=== PATIENT | female | born 1940 | race Caucasian/White ===

== ENCOUNTER 2019-09-03 05:24 | Inpatient (IN) | payer MEDICARE ==
[2019-08-26 13:08] LABS: BASOPHILS # (AUTO) 0.1 X10'3 (0-0.2); BASOPHILS % (AUTO) 0.8 % (0-1); EOSINOPHILS # (AUTO) 0.1 X10'3 (0-0.9); EOSINOPHILS % (AUTO) 1.1 % (0-6); LYMPHOCYTES # (AUTO) 2.3 X10'3 (1.1-4.8); LYMPHOCYTES % (AUTO) 27.1 % (21-51); MEAN CORPUSCULAR HEMOGLOBIN 29.7 PG (27.0-31.0); MEAN CORPUSCULAR HGB CONC 32.9 g/dL (33.0-36.5); MEAN CORPUSCULAR VOLUME 90.3 FL (78-98); MEAN PLATELET VOLUME 7.6 FL (7.4-10.4); MONOCYTES # (AUTO) 0.6 X10'3 (0-0.9); MONOCYTES % (AUTO) 7.4 % (2-12); NEUTROPHILS # (AUTO) 5.5 X10'3 (1.8-7.7); NEUTROPHILS % (AUTO) 63.6 % (42-75); PRE OP HEMATOCRIT 41.3 % (35.0-45.0); PRE OP HEMOGLOBIN 13.6 g/dL (12.0-16.0); PRE OP PLATELET COUNT 269 X10'3 (140-440); RED BLOOD COUNT 4.58 X10'6 (4.20-5.60); RED CELL DISTRIBUTION WIDTH 13.7 % (11.5-14.5)
[2019-08-26 13:18] LABS: PRE OP INR 0.9 INR; PRE OP PROTIME 9.8 SECONDS (9.0-12.0)
[2019-08-26 13:30] LABS: ALBUMIN 3.8 G/DL (3.4-5.0); ALKALINE PHOSPHATASE 57 IU/L (46-116); BLOOD UREA NITROGEN 12 MG/DL (7-18); BUN/CREATININE RATIO 13.8 (6.6-38.0); CALCIUM 9.9 MG/DL (8.5-10.1); CHLORIDE 101 MMOL/L (99-107); CREATININE 0.87 MG/DL (0.40-0.90); PRE OP ALT 13 U/L (30-65); PRE OP ANION GAP 10 (8-16); PRE OP AST 13 U/L (10-37); PRE OP BILIRUB, TOTAL 0.3 MG/DL (0.0-1.0); PRE OP GLUCOSE 95 MG/DL (70-104); PRE OP SODIUM 137 MMOL/L (135-145); TOTAL CARBON DIOXIDE 26.1 MMOL/L (24-32); TOTAL PROTEIN 7.5 G/DL (6.4-8.2); eGFR 62 ML/MIN
[~2019-09-03] VITALS: Ht 152.4 cm; Wt 78.0 kg
[2019-09-03] VITALS (18 sets, daily range): BP systolic 88–139; BP diastolic 42–87
[~2019-09-03 05:24] MED LIST: ATEN100T PO; ENAL20TA PO; EST1T PO; MAGN400C PO; METH500T4 PO
[2019-09-03] MEDS ORDERED: tranexamic acid 1gm/0.7% sal. 100 ML IV ONE (05:30)
[2019-09-03] MEDS ORDERED: vancomycin 1,500 MG in NS 500ml IV soln IV ONE (05:30)
[2019-09-03] MEDS ORDERED: famotidine 20mg tablet PO ONE (05:30)
[2019-09-03] MEDS ORDERED: cefazolin/dext.iso 2gm/50ml 50 ML IV ONE (05:30)
[2019-09-03] MEDS ORDERED: DOCUMENT DATE & TIME OF BETA-BLOCKER PO ONE (05:30)
[2019-09-03] MEDS: ringers solution, lacted 1,000 ML IV SCH ×2 (06:24→11:52)
[2019-09-03] MEDS ORDERED: ceFAZolin 1000mg inj ONE (06:48)
[2019-09-03] MEDS ORDERED: tetracaine 1% (10mg/ml) pres. free inj. ONE (07:12)
[2019-09-03] MEDS ORDERED: fentaNYL/PF 50MCG/1 ML 2ML syringe ONE (07:13)
[2019-09-03] MEDS ORDERED: MIDAZolam 5mg/5ml vial ONE (07:14)
[2019-09-03] MEDS ORDERED: ePHEDrine 50MG/ML INJ. ONE (07:35)
[2019-09-03] MEDS ORDERED: ringers solution, lacted 1,000 ML IV SCH (08:26)
[2019-09-03] MEDS ORDERED: meperidine/PF 25mg/ml syringe IV PRN ×3 (08:30)
[2019-09-03] MEDS ORDERED: morphine 2 MG/ML inj. syringe IV PRN (08:30)
[2019-09-03] MEDS ORDERED: morphine 4 MG/ML inj SYRINge IV PRN (08:30)
[2019-09-03] MEDS ORDERED: ondansetron/PF 4mg/2ml inj IV PRN ×2 (08:30→09:50)
[2019-09-03] MEDS ORDERED: proCHLORperazine 10 MG/2 ml inj IV PRN (08:30)
[2019-09-03] MEDS ORDERED: propofol inj 20 ML IV ONE (09:35)
--- NOTE | 2019-09-03 09:40 | NUR ---
Received from OR via ORTHO BED WITH [facility], accompanied by Anesthesiologist BONITA and report given by Anesthesiolgist. PATIENT WITH 18G PIV IN LEFT AC RUNNING LR AT 100. VSS. RIGHT HIP WRAP PRESENT AND IS CDI. + DP TO RIGHT FOOT. SENSATION LEVEL AT T8 AT THIS TIME FROM SPINAL ANESTHESIA. SCDS DONNED. VSS. DENIES PAIN. Addendum: 09/03/19 at 0953 by Sarthak Renteria RN, RN Amended: Links added.
[2019-09-03] MEDS ORDERED: magnesium hydroxide 30ml (MOM) UD suspension PO PRN (09:50)
[2019-09-03] MEDS ORDERED: acetaminophen 325mg tablet PO PRN (09:50)
[2019-09-03] MEDS ORDERED: bisacodyl 10mg suppository rectal RC PRN (09:50)
[2019-09-03] MEDS ORDERED: diphenhydrAMINE 25mg capsule PO PRN ×2 (09:50)
--- NOTE | 2019-09-03 10:40 | NUR ---
Patient has met criteria for transfer to floor. Patient vss. Pain at a tolerable level. Transferred via bed to room where they were hooked to vitals and RN notified patient has arrived. Bed low, call light within reach, 2-3 rails up, vss, belongings placed in room. Care turned over to RN. GISELLE OSMAN PRESENT TO ASSIST IN SETTING UP PATIENT VS. PATIENT DENIES PAIN, ONE BAG OF BELONGINGS PLAC ED AT BEDSIDE OF 4020B. CARE TURNED OVER. Addendum: 09/03/19 at 1101 by Sarthak Renteria RN, RN Amended: Links added.
[2019-09-03] MEDS: HYDROcodone/acetaminophen 10/325mg tab PO PRN ×3 (13:04→23:45)
[2019-09-03] MEDS: HYDROmorphone inj. 0.5 MG/0.5 ML DISP.SYRIN IV PRN ×2 (15:08→20:55)
[2019-09-03] MEDS: potassium Cl 20mEq in NS 1,000 ML IV SCH ×2 (15:41→23:08)
[2019-09-03] MEDS: ceFAZolin 1GM/D5W- ADD-VANTAGE 50 ML IV SCH ×2 (15:42→23:45)
[2019-09-03] MEDS: aspirin 81mg tab.chew PO SCH (17:07)
[2019-09-03] MEDS ORDERED: aspirin 325mg tablet PO SCH (17:30)
--- NOTE | 2019-09-03 18:27 | NUR ---
Problems reprioritized. Patient report given, questions answered & plan of care reviewed with Thais DESAI.
--- NOTE | 2019-09-03 18:32 | NUR ---
Patient in room ORTHO 4020. I have received report from Sonali DESAI and had the opportunity to ask questions and assume patient care.
[2019-09-03] MEDS ORDERED: vancomycin/NS 1 GM ADD-VANTAGE 250 ML IV SCH (20:00)
[2019-09-03] MEDS: atenolol 50mg tablet PO SCH (21:00)
[2019-09-03] MEDS: simethicone 80mg chew tab PO SCH (21:00)
[2019-09-03] MEDS: lisinopril 20mg tablet PO SCH (21:00)
[2019-09-03] MEDS: psyllium seed 3.4 gm packet PO SCH (21:01)
[2019-09-03] MEDS: sennosides 8.6mg tablet PO SCH (21:01)
[2019-09-03] MEDS: estradiol 1mg tablet PO SCH (21:27)
--- NOTE | 2019-09-03 23:56 | NUR ---
Per report from day shift patient was seen by pgysical therapy but no documentation found. Patient states she stood with PT today post op day zero. Will pass on to physical therapy Addendum: 09/03/19 at 3918 by Thais Damon RN seen by physical therapy.
[2019-09-04] VITALS (7 sets, daily range): BP systolic 106–137; BP diastolic 40–66
[2019-09-04] MEDS: HYDROcodone/acetaminophen 10/325mg tab PO PRN ×3 (05:01→19:24)
[2019-09-04] MEDS: potassium Cl 20mEq in NS 1,000 ML IV SCH ×2 (05:02→18:00)
--- NOTE | 2019-09-04 06:28 | NUR ---
Problems reprioritized. Patient report given, questions answered & plan of care reviewed with Sonali DESAI.
[2019-09-04 06:51] LABS: BASOPHILS % (AUTO) 0.4 % (0-1); EOSINOPHILS % (AUTO) 0.4 % (0-6); HEMOGLOBIN 10.1 g/dl (12.0-16.0); LYMPHOCYTES # (AUTO) 1.7 X10'3 (1.1-4.8); LYMPHOCYTES % (AUTO) 20.7 % (21-51); MEAN CORPUSCULAR HEMOGLOBIN 30.5 PG (27.0-31.0); MEAN CORPUSCULAR HGB CONC 33.6 g/dL (33.0-36.5); MEAN CORPUSCULAR VOLUME 90.7 FL (78-98); MEAN PLATELET VOLUME 7.5 FL (7.4-10.4); MONOCYTES # (AUTO) 0.8 X10'3 (0-0.9); MONOCYTES % (AUTO) 9.6 % (2-12); NEUTROPHILS # (AUTO) 5.8 X10'3 (1.8-7.7); NEUTROPHILS % (AUTO) 68.9 % (42-75); PLATELET COUNT 185 X10'3 (140-440); RED BLOOD COUNT 3.31 X10'6 (4.20-5.60); RED CELL DISTRIBUTION WIDTH 13.7 % (11.5-14.5); WHITE BLOOD COUNT 8.4 X10'3 (4.5-11.0)
[2019-09-04] MEDS: aspirin 81mg tab.chew PO SCH ×2 (07:21→17:59)
[2019-09-04] MEDS: simethicone 80mg chew tab PO SCH ×3 (07:22→18:48)
[2019-09-04 07:27] LABS: ANION GAP 8 (8-16); CHLORIDE 103 MMOL/L (99-107); POTASSIUM 4.1 MMOL/L (3.5-5.1); SODIUM 135 MMOL/L (135-145); TOTAL CARBON DIOXIDE 23.6 MMOL/L (24-32)
--- NOTE | 2019-09-04 09:16 | NUR ---
Problems reprioritized. Patient report given, questions answered & plan of care reviewed with Alice DESAI.
--- NOTE | 2019-09-04 09:30 | NUR ---
Patient in room ORTHO 4020. I have received report from Sonali DESAI and had the opportunity to ask questions and assume patient care.
--- NOTE | 2019-09-04 09:41 | NUR ---
I have reviewed and agree with the physical assessment charted by Sonali DESAI
--- NOTE | 2019-09-04 17:10 | NUR ---
Student documentation: I have reviewed all interventions, assessments performed and documented by Alejandra Student Nurse.
--- NOTE | 2019-09-04 18:00 | NUR ---
Patient in room ORTHO 4020. I have received report from GISELLE Jenkins and had the opportunity to ask questions and assume patient care.
--- NOTE | 2019-09-04 18:24 | NUR ---
Problems reprioritized. Patient report given, questions answered & plan of care reviewed with Alicia DESAI.
[2019-09-04] MEDS: psyllium seed 3.4 gm packet PO SCH (20:34)
[2019-09-04] MEDS: atenolol 50mg tablet PO SCH (20:34)
[2019-09-04] MEDS: estradiol 1mg tablet PO SCH (20:35)
[2019-09-04] MEDS: sennosides 8.6mg tablet PO SCH (20:35)
[2019-09-04] MEDS: lisinopril 20mg tablet PO SCH (20:35)
[2019-09-05] MEDS: HYDROcodone/acetaminophen 10/325mg tab PO PRN ×5 (02:15→23:48)
[2019-09-05] MEDS: potassium Cl 20mEq in NS 1,000 ML IV SCH (05:38)
[2019-09-05 06:00] VITALS: BP 121/46
--- NOTE | 2019-09-05 06:15 | NUR ---
Patient in room ORTHO 4020. I have received report from Alicia and had the opportunity to ask questions and assume patient care.
[2019-09-05 06:23] LABS: BASOPHILS % (AUTO) 0.2 % (0-1); EOSINOPHILS # (AUTO) 0.1 X10'3 (0-0.9); EOSINOPHILS % (AUTO) 1.3 % (0-6); HEMATOCRIT 29.1 % (35.0-45.0); HEMOGLOBIN 9.8 g/dl (12.0-16.0); LYMPHOCYTES # (AUTO) 1.5 X10'3 (1.1-4.8); LYMPHOCYTES % (AUTO) 14.8 % (21-51); MEAN CORPUSCULAR HEMOGLOBIN 30.8 PG (27.0-31.0); MEAN CORPUSCULAR HGB CONC 33.7 g/dL (33.0-36.5); MEAN CORPUSCULAR VOLUME 91.2 FL (78-98); MEAN PLATELET VOLUME 7.9 FL (7.4-10.4); MONOCYTES # (AUTO) 0.8 X10'3 (0-0.9); MONOCYTES % (AUTO) 8.2 % (2-12); NEUTROPHILS # (AUTO) 7.5 X10'3 (1.8-7.7); NEUTROPHILS % (AUTO) 75.5 % (42-75); PLATELET COUNT 173 X10'3 (140-440); RED BLOOD COUNT 3.19 X10'6 (4.20-5.60); RED CELL DISTRIBUTION WIDTH 13.7 % (11.5-14.5); WHITE BLOOD COUNT 9.9 X10'3 (4.5-11.0)
--- NOTE | 2019-09-05 06:30 | NUR ---
Problems reprioritized. Patient report given, questions answered & plan of care reviewed with GISELLE Sofia.
[2019-09-05] MEDS: simethicone 80mg chew tab PO SCH ×2 (07:59→12:40)
[2019-09-05] MEDS: aspirin 81mg tab.chew PO SCH ×2 (07:59→16:39)
[2019-09-05 10:44] VITALS: BP 110/51
--- NOTE | 2019-09-05 14:24 | NUR ---
Problems reprioritized. Patient report given, questions answered & plan of care reviewed with Helena on PCU.
--- NOTE | 2019-09-05 14:30 | NUR ---
Received from ortho neuro, report from Kimberlyn. Oriented pt to room, unit and plan of care.
[2019-09-05] MEDS: SIMETHICONE 125 MG PO SCH (17:55)
[2019-09-05 18:00] VITALS: BP 148/65
--- NOTE | 2019-09-05 18:18 | NUR ---
Patient in room PCU 3012. I have received report from GISELLE Malik and had the opportunity to ask questions and assume patient care.
--- NOTE | 2019-09-05 18:57 | NUR ---
Problems reprioritized. Patient report given, questions answered & plan of care reviewed with Alicia.
[2019-09-05 20:57] VITALS: BP 124/79
[2019-09-05] MEDS: sennosides 8.6mg tablet PO SCH (21:00)
[2019-09-05] MEDS: psyllium seed 3.4 gm packet PO SCH (21:00)
[2019-09-05] MEDS: atenolol 50mg tablet PO SCH (21:00)
[2019-09-05] MEDS: lisinopril 20mg tablet PO SCH (21:01)
[2019-09-05] MEDS: estradiol 1mg tablet PO SCH (21:01)
[2019-09-05 22:00] VITALS: BP 138/66
[2019-09-06 02:00] VITALS: BP 107/46
[2019-09-06] MEDS: HYDROcodone/acetaminophen 10/325mg tab PO PRN ×2 (05:20→17:28)
[2019-09-06 05:25] LABS: BASOPHILS % (AUTO) 0.4 % (0-1); EOSINOPHILS # (AUTO) 0.2 X10'3 (0-0.9); EOSINOPHILS % (AUTO) 1.9 % (0-6); HEMATOCRIT 29.2 % (35.0-45.0); HEMOGLOBIN 9.7 g/dl (12.0-16.0); LYMPHOCYTES # (AUTO) 1.5 X10'3 (1.1-4.8); LYMPHOCYTES % (AUTO) 16.2 % (21-51); MEAN CORPUSCULAR HEMOGLOBIN 30.3 PG (27.0-31.0); MEAN CORPUSCULAR HGB CONC 33.3 g/dL (33.0-36.5); MEAN CORPUSCULAR VOLUME 91.3 FL (78-98); MEAN PLATELET VOLUME 7.7 FL (7.4-10.4); MONOCYTES # (AUTO) 0.8 X10'3 (0-0.9); MONOCYTES % (AUTO) 8.2 % (2-12); NEUTROPHILS # (AUTO) 6.9 X10'3 (1.8-7.7); NEUTROPHILS % (AUTO) 73.3 % (42-75); PLATELET COUNT 177 X10'3 (140-440); RED CELL DISTRIBUTION WIDTH 14.1 % (11.5-14.5); WHITE BLOOD COUNT 9.5 X10'3 (4.5-11.0)
[2019-09-06 06:00] VITALS: BP 118/57
--- NOTE | 2019-09-06 06:42 | NUR ---
Problems reprioritized. Patient report given, questions answered & plan of care reviewed with GISELLE WEN.
[2019-09-06] MEDS: aspirin 81mg tab.chew PO SCH ×2 (08:52→17:28)
[2019-09-06] MEDS: SIMETHICONE 125 MG PO SCH ×3 (08:53→18:00)
[2019-09-06 11:00] VITALS: BP 124/58
--- NOTE | 2019-09-06 11:15 | NUR ---
JESSICA Drain flashing orange. JESSICA reinforced using the JESSICA dressing in the packet x4 over all borders. Second border placed over JESSICA drain then JESSICA drain reset and began flashing green. Recheck throughout today showed green light on JESSICA drain.
--- NOTE | 2019-09-06 12:30 | NUR ---
Pt had episode with lunch where BIPAP was removed and pt desat down to 50's pretty quickly. Noted 02 was set on nasal cannula on pts nose, but noted there was no 02 turned on for pt at 15 liters. Pt appeared deep purple in color on face and all extremities. Contact Juan J immediately who went to room and placed BIPAP back on the patient quickly and also noted 02 not on. Pt's pulse ox was 52% at that time. 02 quickly climbed to 82-87% after BIPAP placed back on pt. Pt was not able to eat but a few bites on food and liquid. Will continue to monitor closely.
[2019-09-06 15:00] VITALS: BP 145/64
--- NOTE | 2019-09-06 16:16 | NUR ---
Joint replacement consult: Pt seen by LEXIS for written/verbal high protein ed w/ RD contact information provided. Pt reports eating until full and declines additional proteins/ONS at this time. Addendum: 09/06/19 at [address] Amended: Links added.
--- NOTE | 2019-09-06 17:58 | NUR ---
Called RT to remove patient from BIPAP so that he may eat some of his dinner. GISELLE Denney arrived to room to assist with removing BIPAP and placed nasal cannula on pt at 15 liters. Pt immediately started to desat to 78% and Amanda Arita RN placed BIPAP back on the patient. Pulse Ox increased from 72% to 89 %. Color improved. Pt frustrated and states "I just can't breathe without my BIPAP on." Will continue to monitor closely.
[2019-09-06 18:00] VITALS: BP 132/56
--- NOTE | 2019-09-06 18:31 | NUR ---
Patient in room PCU 3013. I have received report from Faye DESAI and had the opportunity to ask questions and assume patient care.
--- NOTE | 2019-09-06 18:40 | NUR ---
Problems reprioritized. Patient report given, questions answered & plan of care reviewed with GISELLE Ugalde.
[2019-09-06] MEDS: lisinopril 20mg tablet PO SCH (20:41)
[2019-09-06] MEDS: psyllium seed 3.4 gm packet PO SCH (20:42)
[2019-09-06] MEDS: sennosides 8.6mg tablet PO SCH (20:42)
[2019-09-06] MEDS: estradiol 1mg tablet PO SCH (20:42)
[2019-09-06] MEDS: atenolol 50mg tablet PO SCH (20:42)
[2019-09-06 22:00] VITALS: BP 126/65
[2019-09-07 02:00] VITALS: BP 133/67
[2019-09-07] MEDS: HYDROcodone/acetaminophen 10/325mg tab PO PRN (02:19)
[2019-09-07 06:00] VITALS: BP 132/70
--- NOTE | 2019-09-07 06:15 | NUR ---
Problems reprioritized. Patient report given, questions answered & plan of care reviewed with Faye DESAI.
[2019-09-07] MEDS: SIMETHICONE 125 MG PO SCH (09:00)
[2019-09-07] MEDS: aspirin 81mg tab.chew PO SCH (09:14)
--- NOTE | 2019-09-07 11:00 | NUR ---
Received discharge orders for pt to go home today. IV dc'd from [facility] with cannula intact. Pt given island dressings to take home when JESSICA is finished. Pt instructed how to remove JESSICA drain once lights on monitor shut off. Pt transported via w/c to private vehicle out the front lobby for transport to her home.
--- NOTE | 2019-09-10 09:48 | NUR ---
Case Management DC follow up: spoke to pt via telephone. S/P: RTHA Reports: " doing real good". Denies: acute cp, SOB, resp distress, vertigo, syncope,weakness, blurry vision, N/V, COLE, emergent general pain, abd tenderness/distension, fever. Denies s/s infection to surg site. Compliant w/after care instructions. Verbalizes understanding of s/s that warrant 9-11/ER visit for evaluation. Verbalizes understanding of new Rx [place] and why prescribed, resumes current Rx/taking as ordered, no ase r/t polypharmacy. Acknowledges need to schedule/keep follow up appts w/ PCP/karen. Pt was seen by Dr Vaughan 09/09/19. Allowed to shower as instructed. Needs met, questions answered at DC, no further questions at this time.
== END 2019-09-07 11:00 | disposition home or self-care (01) | DRG 470 ==
LOC: PAS 05:24 → ORTHO 4S 09:48 → UNDOADMIN 09:53 → PCU 3S 09-05 14:30
PROVIDERS: ADMIT Orthopaedic Surgery; ATTEND Orthopaedic Surgery
PROC: 0SR906Z Replacement of Right Hip Joint with Oxidized Zirconium on Polyethylene Synthetic Substitute, Open Approach (ICD-10-PCS; principal; 2019-09-03 07:09)
DX: M16.11 Unilateral primary osteoarthritis, right hip (principal); D62 Acute posthemorrhagic anemia; I10 Essential (primary) hypertension; E66.9 Obesity, unspecified; Z68.33 Body mass index [BMI] 33.0-33.9, adult; Z79.899 Other long term (current) drug therapy
CPT/HCPCS: 36415; 80051; 80053; 82948; 85025; 85610; 85730; 86885; 86900; 86901; 86920; 87081; 97110; 97116; 97162; 97530; A7000; C1758; C1776; G0378; J0690; J1170; J2250; J2405; J2704; J3010; J3370; J3480; J7040; J7120

== ENCOUNTER 2019-12-14 12:30 | Outpatient (CLI) | payer MEDICARE ==
[~2019-12-14 12:30] MED LIST changes: +ENAL-79 PO; -ENAL20TA PO; -MAGN400C PO
[2019-12-16] MEDS ORDERED: APIX5TAB3 PO (11:10)
== END 2019-12-14 23:59 | disposition home or self-care (01) ==
LOC: VAS 12:30
PROVIDERS: ATTEND Family Medicine
DX: I82.432 Acute embolism and thrombosis of left popliteal vein (principal); I82.412 Acute embolism and thrombosis of left femoral vein; I82.442 Acute embolism and thrombosis of left tibial vein; M71.22 Synovial cyst of popliteal space [Baker], left knee; M71.21 Synovial cyst of popliteal space [Baker], right knee; R59.0 Localized enlarged lymph nodes
CPT/HCPCS: 93970